=== PATIENT | male | born 1990 | race American Indian/Alaskan Native ===

== ENCOUNTER 2016-07-28 02:58 | Emergency (ER) | payer MEDICAID ==
[2016-07-28 03:38] LABS: Basophils % (Auto) 0.4 % (0.0-1.8); Eosinophils % (Auto) 3.5 % (0.0-4.3); Hematocrit 43.8 % (35.5-45.6); Hemoglobin 14.2 gm/dl (11.8-15.2); Mean Corpuscular HGB Conc 32 % (32-34); Mean Corpuscular Hemoglobin 27 pg (28-32); Mean Corpuscular Volume 85 fl (84-94); Platelet Count 243 K/mm3 (140-440); Red Blood Count 5.16 M/mm3 (3.65-5.03); Red Cell Distribution Width 13.5 % (13.2-15.2); White Blood Count 12.9 K/mm3 (4.5-11.0)
[2016-07-28 03:55] LABS: Anion Gap 21 mmol/L; BUN/Creatinine Ratio 12.85; Blood Urea Nitrogen 9 mg/dL (9-20); Calcium 9.4 mg/dL (8.4-10.2); Carbon Dioxide 22 mmol/L (22-30); Chloride 100.6 mmol/L (98-107); Glucose 94 mg/dL (75-100); Potassium 3.9 mmol/L (3.6-5.0); Sodium 140 mmol/L (137-145)
[2016-07-28 04:05] LABS: Urine Drugs of Abuse Note Disclamer
[2016-07-28 04:32] LABS: Bilirubin,Urine NEG (Negative); Blood,Urine NEG (Negative); Ketones,Urine TR mg/dL (Negative); Leukocyte Esterase,Urine NEG (Negative); Mucus,Urine FEW /HPF; Nitrite,Urine NEG (Negative); Protein,Urine <15 mg/dL mg/dL (Negative); Urobilinogen,Urine < 2.0 mg/dL (<2.0); WBC,Urine < 1.0 /HPF (0.0-6.0)
--- NOTE | 2016-07-28 05:45 | Emergency Department Report ---
HPI - General Chief Complaint: Psych Time Seen by Provider: 07/28/16 03:39 - HPI HPI: This is a 26-year-old -[place] male who presents to the emergency department by EMS with the complaint of depression and some suicidal ideations. Once the patient got into the emergency department he became agitated, hyperverbal and began changing his story. While he was heard yelling out that he wanted to kill himself and his family, he now says that he was asked if he ever felt this way within the last 30 days and says that he occasionally does think about it but that is not why he called the ambulance tonight. The patient admits to history of PTSD and depression and does not appear to be on any medications. He talks about how he comes from a poor family and was on his own for over 10 years but now that he is return back home that his family does not want show any support and they are constantly bickering. Patient denies any illicit drug use but does admit to alcohol consumption this evening. ED Past Medical Hx - Past Medical History Previous Medical History?: Yes Hx Psychiatric Treatment: Yes (PTSD) - Surgical History Past Surgical History?: No - Social History Smoking Status: Never Smoker ED Review of Systems ROS: Stated complaint: MH EVAL Other details as noted in HPI Comment: All other systems reviewed and negative Constitutional: denies: chills, fever Eyes: denies: eye pain, eye discharge, vision change ENT: denies: ear pain, throat pain Respiratory: denies: cough, shortness of breath, wheezing Cardiovascular: denies: chest pain, palpitations Gastrointestinal: denies: abdominal pain, nausea, diarrhea Genitourinary: denies: urgency, dysuria Musculoskeletal: denies: back pain, joint swelling, arthralgia Skin: denies: rash, lesions Neurological: denies: headache, weakness, paresthesias Physical Exam - Physical Exam Vital Signs: Vital Signs 07/28/16 07/28/16 03:23 05:02 Temperature 97.4 F L Pulse Rate 127 H Respiratory 20 18 Rate Blood Pressure 152/94 [Right] O2 Sat by Pulse 97 Oximetry Physical Exam: GENERAL: The patient is well-developed well-nourished. HEENT: Normocephalic. Atraumatic. Extraocular motions are intact. Patient has moist mucous membranes. NECK: Supple. No meningitic signs are noted. There is no adenopathy noted. CHEST/LUNGS: Clear to auscultation. There is no respiratory distress noted. HEART/CARDIOVASCULAR: Regular. There is mild tachycardia. There is no gallop rub or murmur. ABDOMEN: Abdomen is soft, nontender. Patient has normal bowel sounds. There is no abdominal distention. SKIN: Skin is warm and dry. NEURO: The patient is awake, alert, and oriented. The patient is cooperative. The patient has no focal neurologic deficits. Cranial nerves II through XII grossly intact. MUSCULOSKELETAL: There is no tenderness or deformity. There is no limitation range of motion. There is no evidence of acute injury. PSYCH: Patient is hyperverbal and rambling and appears easily agitated and show some signs of paranoia. ED Course Vital Signs 07/28/16 07/28/16 03:23 05:02 Temperature 97.4 F L Pulse Rate 127 H Respiratory 20 18 Rate Blood Pressure 152/94 [Right] O2 Sat by Pulse 97 Oximetry ED Medical Decision Making - Lab Data Result diagrams: 07/28/16 03:24 07/28/16 03:24 - Medical Decision Making 26-year-old male presents to the emergency department originally for what he says was to get help for some depression. However at some point he verbalized to EMS and family and ER staff that he had suicidal ideations and possibly some homicidal ideations. The patient later played it off as a joke. He also then says that the EMS asked him if he has ever felt this way within the last 30 days and he says that he has but also thinks that it is normal and everyone has that kind of thought process over a one-month period. He does admit to some feelings of paranoia and some resentment towards family as they are not showing any support and they are all bickering. He says that everyone has turned against him at home. Patient's labs are mostly unremarkable except for he does have alcohol intoxication with a blood alcohol level of 0.23. The patient will be given thiamine and a multivitamin and IV fluid resuscitation if he will let us. Once the blood alcohol level is below the legal limit, he will be evaluated for psychiatric placement. Patient currently appears medically stable for any type of psychiatric placement but we will wait for a legal blood alcohol level. He has been made a 1013 secondary to his suicidal and/or homicidal ideations and some paranoia. - Differential Diagnosis schizophrenia, schizoaffective, substance abuse, bipolar, depression Critical Care Time: No Critical care attestation.: If time is entered above; I have spent that time in minutes in the direct care of this critically ill patient, excluding procedure time. ED Disposition Clinical Impression: Suicidal ideations, Hyperverbal speech Alcohol intoxication Qualifiers: Complication of substance-induced condition: uncomplicated Qualified Code(s): F10.920 - Alcohol use, unspecified with intoxication, uncomplicated Disposition: DC-01 TO HOME OR SELFCARE Is pt being admited?: No Condition: Good Referrals: PRIMARY CARE, [Primary Care Provider] - 3-5 Days Time of Disposition: 05:47
[2016-07-28] MEDS ORDERED: THERAGRAN Tab PO ONE (05:47)
[2016-07-28] MEDS ORDERED: VITAMIN B-1 PO ONE (05:47)
[2016-07-28 11:44] VITALS: BP 129/95
--- NOTE | 2016-07-28 16:15 | Consultation ---
History of Present Illness - Reason for Consult Consult date: 07/28/16 Reason for consult: Mental Health Evaluation Requesting physician: PRIMITIVO PEREZ - Chief Complaint Chief complaint: "I was wrong" - History of Present Psychiatric Illness This is a 26-year-old -[place] male who presents to the emergency department by EMS with the complaint of depression and some suicidal ideations. Today patient is calm and cooperative during the assessment. He stated that he was wrong for being a disturbance during triage. He stated SI/HI's during the triage process. Patient was intoxicated with a alcohol of 0.23. He stated that he got into an argument at home with his girlfriend reference his kids. He decided to leave and go to his mom's house and "power down." Patient started drinking and thinking about his past, the fact his kids were going back to [place], and his family structure. He stated when he drink, he get drunk most of the time. He stated that he "definitely" don't want to kill himself or anyone else. He stated that his family is "screwed up" and feel like he don't have any support from them. He denies SI/HI's, AVH's, a poor appetite, and nightmares. He stated that he always struggled with sleep before he joined the . Patient stated that he has a hx of PTSD. He stated that he does not take pills for anything, he prefer therapy. Medications and Allergies Allergies Allergy/AdvReac Type Severity Reaction Status Date / Time No Known Allergies Allergy Unverified 07/28/16 03:04 Past psychiatric history - Past Medical History Past Medical History: No medical history Past Surgical History: No surgical history - past Psychiatric treatment and history psychiatric treatment history: He stated that he saw a psychiatrist in the [employer] [facility] for PTSD. He denies a fam psy hx. 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, [place]) Mental Status Exam - Vital signs Last Vital Signs Temp 98.2 F 07/28/16 11:43 Pulse 73 07/28/16 11:43 Resp 18 07/28/16 14:36 BP 129/95 07/28/16 11:43 Pulse Ox 98 07/28/16 14:36 - Exam Narrative exam: ROS: (-) depression MSE: Appearance: calm, cooperative Behavior: good eye contact Speech: regular rate and tone Mood: "I feel fine" Affect: congruent to mood Thought Process: linear Thought Content: denies SI/HI's and AVH's Motor Activity: lying in bed Cognition: a/ox 3 Insight: fair Judgment: fair Results Result Diagrams: 07/28/16 03:24 07/28/16 03:24 Abnormal lab results 07/28/16 07/28/16 07/28/16 Range/Units 03:24 03:24 03:24 WBC 12.9 H (4.5-11.0) K/mm3 RBC 5.16 H (3.65-5.03) M/mm3 MCH 27 L (28-32) pg Lymph % (Auto) 35.2 H (13.4-35.0) % Creatinine 0.7 L (0.8-1.5) mg/dL Plasma/Serum Alcohol 0.23 H (0-0.07) gm% All other labs normal. Assessment and Plan Assessment and plan: Impression: Substance induced Mood DO. Today patient is calm and cooperative during the assessment. He stated that he was wrong for being a disturbance during triage. He stated SI/HI's during the triage process. Patient was intoxicated with a alcohol serum of 0.23. He stated that he got into an argument at home with his girlfriend reference his kids. He decided to leave and go to his mom's house and "power down." Patient stated that his mood is "fine." No behavior issues per the staff. Positive for marijuana and alcohol serum 0.23. Patient is no threat to self. DD: R/O PTSD Recommendation/Plan: Rescind 1013. Outpatient psy/rehab services information given to patient (Mele Cuellar). Recommended AA for this patient. Discussed the importance to abstain from alcohol consumption (etoh) to get intoxicated. [facility]
== END 2016-07-28 19:15 | disposition home or self-care (01) ==
LOC: EEVIPCON 02:58 → ED 02:58
DX: R45.851 Suicidal ideations (principal); F10.920 Alcohol use, unspecified with intoxication, uncomplicated; F80.89 Other developmental disorders of speech and language; F43.10 Post-traumatic stress disorder, unspecified
CPT/HCPCS: 36415; 80048; 80307; 81001; 85025; 99284; G0480; 80320

== ENCOUNTER 2017-06-13 00:54 | Emergency (ER) | payer SELFPAY ==
--- NOTE | 2017-06-13 01:28 | Emergency Department Report ---
- General Chief Complaint: Wound/Laceration Stated Complaint: LEFT ARM PAIN/INJURY Time Seen by Provider: 06/13/17 01:22 Source: patient, EMS Mode of arrival: Stretcher Limitations: Other - History of Present Illness Initial Comments: Patient is 27 years old male brought by police department. Patient sustained a right lower arm laceration. Patient stated that he would get angry and he punched a window glass. He stated that his last tetanus shot was 2 years ago. She denied any other injuries. Patient is intoxicated with alcohol with strong smell. She denied any weakness numbness or tingling sensation. Able to use his right arm since then. -: Sudden Extremity Location: Right: Arm Place: outdoors Context: sharp object use - Related Data Allergies Allergy/AdvReac Type Severity Reaction Status Date / Time No Known Allergies Allergy Unverified 07/28/16 03:04 ED Review of Systems ROS: Stated complaint: LEFT ARM PAIN/INJURY Other details as noted in HPI Comment: All other systems reviewed and negative Constitutional: denies: chills, fever Respiratory: denies: cough, orthopnea, shortness of breath, SOB with exertion Cardiovascular: denies: chest pain, palpitations, dyspnea on exertion Gastrointestinal: denies: abdominal pain, nausea, vomiting Neurological: denies: headache, weakness, numbness ED Past Medical Hx - Past Medical History Previous Medical History?: No Hx Psychiatric Treatment: Yes (PTSD) - Surgical History Past Surgical History?: No - Social History Smoking Status: Unknown if ever smoked Substance Use Type: Alcohol ED Physical Exam - General Limitations: Other General appearance: alert, in no apparent distress, appears intoxicated - Head Head exam: Present: atraumatic, normocephalic, normal inspection - Eye Eye exam: Present: normal appearance, PERRL - ENT ENT exam: Present: normal exam, normal orophraynx, mucous membranes moist - Neck Neck exam: Present: normal inspection, full ROM. Absent: tenderness, meningismus, lymphadenopathy, thyromegaly - Respiratory Respiratory exam: Present: normal lung sounds bilaterally. Absent: respiratory distress, wheezes, rales, rhonchi, chest wall tenderness - Cardiovascular Cardiovascular Exam: Present: regular rate, normal rhythm, normal heart sounds - GI/Abdominal GI/Abdominal exam: Present: soft, normal bowel sounds. Absent: distended, tenderness, guarding, rebound, rigid, diminished bowel sounds, organomegaly, mass, bruit, pulsatile mass, hernia - Expanded Upper Extremity Exam Right Upper Arm exam: Present: full ROM, laceration. Absent: tenderness, swelling, ecchymosis, deformity, crepidus, dislocation Elbow exam: Present: normal inspection, full ROM. Absent: tenderness, swelling Forearm Wrist exam: Present: normal inspection Hand Wrist exam: Present: normal inspection, full ROM Neuro motor exam: Present: wrist extension intact, thumb opposition intact, thumb IP flexion intact, thumb adduction intact, fingers 2-5 abduction intact Neurosensory exam: Present: 2-point discrimination, radial nerve intact, ulnar nerve intact, median nerve intact Vascular: Present: normal capillary refill, radial pulse (strong), brachial pulse (strong), ulnar pulse. Absent: vascular compromise, pulse deficit radial art, pulse deficit ulnar art, pulse deficit brachial art - Back Exam Back exam: Present: normal inspection, full ROM. Absent: tenderness, CVA tenderness (R), CVA tenderness (L), muscle spasm, paraspinal tenderness, vertebral tenderness - Neurological Exam Neurological exam: Present: alert, oriented X3, CN II-XII intact, normal gait - Skin Skin exam: Present: warm, dry, normal color, other (centimeter laceration to the right lower arm medial aspect.). Absent: intact ED Course Vital Signs 06/13/17 06/13/17 06/13/17 01:05 01:10 01:18 Pulse Rate 97 H 102 H Respiratory 22 20 Rate Blood Pressure 87/65 87/65 Blood Pressure 85/68 [Left] O2 Sat by Pulse 100 100 Oximetry 06/13/17 06/13/17 06/13/17 01:20 01:22 01:30 Pulse Rate 94 H 96 H Respiratory 17 18 14 Rate Blood Pressure 127/84 115/69 Blood Pressure [Left] O2 Sat by Pulse 100 99 100 Oximetry 06/13/17 06/13/17 06/13/17 01:40 01:50 02:00 Pulse Rate 84 87 85 Respiratory 28 H 24 14 Rate Blood Pressure 115/69 110/63 101/51 Blood Pressure [Left] O2 Sat by Pulse 100 99 99 Oximetry 06/13/17 06/13/17 06/13/17 02:10 02:20 02:30 Pulse Rate 83 83 78 Respiratory 18 21 24 Rate Blood Pressure 99/53 86/41 91/49 Blood Pressure [Left] O2 Sat by Pulse 99 99 Oximetry 06/13/17 02:40 Pulse Rate 83 Respiratory 24 Rate Blood Pressure 103/60 Blood Pressure [Left] O2 Sat by Pulse 98 Oximetry - Laceration /Wound Repair Right Arm Wound Location: upper extremity Wound Length (cm): 4 Wound's Depth, Shape: linear Wound Explored: no foreign body removed Betadine Prep?: Yes Anesthesia: 1% Lidocaine Wound Debrided: moderate Wound Repaired With: sutures Suture Size/Type: 4:0 Layer Closure?: No Sterile Dressing Applied?: Yes ED Medical Decision Making - Lab Data Result diagrams: 06/13/17 02:04 06/13/17 02:04 - Radiology Data Radiology results: report reviewed Referring Physician: TIANNA MENDEZ Patient Name: FABIO OLSON Date of : 1990 Sex: Male Report Date: 2017-06-13 Report Status: [place] [address] XRay Report Signed Patient: FABIO OLSON MR#: [id number] : 1990 Acct:[id number] Age/Sex: 27 / M ADM Date: 06/13/17 Loc: ED Attending Dr: Ordering Physician: TIANNA MENDEZ Date of Service: 06/13/17 Procedure(s): XR humerus 2+V RT Accession Number(s): [id number] cc: TIANNA MENDEZ Fluoro Time In Minutes: FINAL REPORT PROCEDURE: XR HUMERUS 2+V RT TECHNIQUE: RIGHT humerus radiographs, AP and lateral views. HISTORY: Laceration to right arm. COMPARISON: No prior studies are available for comparison. FINDINGS: Fracture (s) and/or Dislocation(s): None . Joint space(s): Normal. Soft tissues: Normal. Bone mineralization: Normal. Foreign bodies: None. IMPRESSION: No radiographic evidence of displaced fracture. Transcribed By: HERNAN Dictated By: KYLEE COX MD Electronically Authenticated By: KYLEE COX MD Signed Date/Time: 06/13/17143 DD/ 3 TD/TT: 06/13/17143 Critical care attestation.: If time is entered above; I have spent that time in minutes in the direct care of this critically ill patient, excluding procedure time. ED Disposition Clinical Impression: Laceration of upper arm, Alcohol intoxication Disposition: DC-01 TO HOME OR SELFCARE Is pt being admited?: No Condition: Stable Instructions: Suture Care (ED), Laceration (ED) Additional Instructions: Suture removal in 7-10 days. Referrals: PRIMARY CARE, [Primary Care Provider] - 3-5 Days
[2017-06-13] MEDS ORDERED: XYLOCAINE 2% INFILTRATI ONE (01:34)
--- NOTE | 2017-06-13 01:49 | XRay Report ---
FINAL REPORT PROCEDURE: XR HUMERUS 2+V RT TECHNIQUE: RIGHT humerus radiographs, AP and lateral views. HISTORY: Laceration to right arm. COMPARISON: No prior studies are available for comparison. FINDINGS: Fracture (s) and/or Dislocation(s): None . Joint space(s): Normal. Soft tissues: Normal. Bone mineralization: Normal. Foreign bodies: None. IMPRESSION: No radiographic evidence of displaced fracture.
[2017-06-13] MEDS ORDERED: NACL 0.9% 1000 ML 1,000 ML ONE (02:29)
[2017-06-13] MEDS ORDERED: NACL 0.9% 1000 ML 1,000 ML IV ONE ×2 (02:30→06:01)
[2017-06-13 02:32] LABS: Basophils % (Auto) 0.2 % (0.0-1.8); Eosinophils % (Auto) 0.3 % (0.0-4.3); Hematocrit 34.8 % (35.5-45.6); Hemoglobin 11.3 gm/dl (11.8-15.2); Lymphocytes # (Auto) 2.5 K/mm3 (1.2-5.4); Lymphocytes % (Auto) 13.9 % (13.4-35.0); Mean Corpuscular HGB Conc 33 % (32-34); Mean Corpuscular Hemoglobin 28 pg (28-32); Mean Corpuscular Volume 87 fl (84-94); Monocytes # (Auto) 0.9 K/mm3 (0.0-0.8); Monocytes % (Auto) 5.1 % (0.0-7.3); Platelet Count 240 K/mm3 (140-440); Red Blood Count 4.01 M/mm3 (3.65-5.03); Red Cell Distribution Width 15.5 % (13.2-15.2)
[2017-06-13 02:44] LABS: Alanine Aminotransferase 15 units/L (7-56); Albumin 3.5 g/dL (3.9-5); BUN/Creatinine Ratio 12; Blood Urea Nitrogen 7 mg/dL (9-20); Calcium 7.3 mg/dL (8.4-10.2); Hemolysis Index 8
[2017-06-13 05:02] LABS: Amphetamine Screen,Urine PRESUMPTIVE NEGATIVE; Benzodiazepines Screen,Urine PRESUMPTIVE NEGATIVE; Cocaine Screen,Urine PRESUMPTIVE NEGATIVE; Methadone Screen,Urine PRESUMPTIVE NEGATIVE; Opiate Screen,Urine PRESUMPTIVE NEGATIVE
[2017-06-13 05:24] LABS: Cannabinoid Screen,Urine PRESUMPTIVE POSITIVE
[2017-06-13 10:07] VITALS: BP 108/51
[2017-06-13] MEDS ORDERED: HYDROGEN PEROXIDE ONE (10:07)
[2017-06-13] MEDS ORDERED: NACL 0.9% 500 ML IR ONE (10:07)
[2017-06-13] MEDS ORDERED: HYDROGEN PEROXIDE TP ONE (12:25)
[2017-06-13] MEDS ORDERED: NACL 0.9% IR ONE (12:25)
== END 2017-06-13 10:37 | disposition home or self-care (01) ==
LOC: ED 00:54
DX: S41.111A Laceration without foreign body of right upper arm, initial encounter (principal); F10.120 Alcohol abuse with intoxication, uncomplicated; W22.09XA Striking against other stationary object, initial encounter; Y93.89 Activity, other specified; Y92.89 Other specified places as the place of occurrence of the external cause; Y99.8 Other external cause status
CPT/HCPCS: 12002; 36415; 73060; 80053; 80307; 85025; 86706; 86803; 87806; 96360; 96361; 99284; G0480; J7030; 80320